=== PATIENT | male | born 1955 | race African-American/Black ===

== ENCOUNTER 2018-06-16 00:37 | Emergency (ER) | payer MEDICAID, OTHER ==
[~2018-06-16] VITALS: Ht 182.9 cm; Wt 96.0 kg
[2018-06-16] MEDS ORDERED: MECLIZINE 25MG TABLET PO ONE (02:15)
[2018-06-16 02:51] VITALS: BP 126/82
== END 2018-06-16 03:19 | disposition home or self-care (01) ==
LOC: ER 00:37
DX: R42 Dizziness and giddiness (principal); E11.9 Type 2 diabetes mellitus without complications; I10 Essential (primary) hypertension; D64.9 Anemia, unspecified; Z86.73 Personal history of transient ischemic attack (TIA), and cerebral infarction without residual deficits; Z98.890 Other specified postprocedural states
CPT/HCPCS: 99282; Z7610; J8597

== ENCOUNTER 2018-11-09 11:21 | Inpatient (IN) | payer MEDICAID ==
[~2018-11-09] VITALS: Ht 172.7 cm; Wt 88.7 kg
[2018-11-09] MEDS ORDERED: FAMOTIDINE 20MG/2ML VIAL IV STA (14:19)
[2018-11-09] MEDS ORDERED: MORPHINE SULFATE 4 MG/ML CPJ (NOT FOR IM USE) IV STA (14:19)
[2018-11-09] MEDS ORDERED: SODIUM CHLORIDE 0.9% 1,000 ML IV ONE (14:19)
[2018-11-09] MEDS ORDERED: ONDANSETRON HCL 4MG/2ML INJ IV STA (14:19)
[2018-11-09] MEDS ORDERED: MORPHINE SULFATE 2 MG/ML CPJ (NOT FOR IM USE) IV NR (15:15)
[2018-11-09 16:29] LABS: BASOPHILS % 0.1 % (0.0-2.0); HEMATOCRIT. 34.1 % (42.0-52.0); HEMOGLOBIN. 11.2 g/dL (14.0-18.0); LYMPHOCYTES % 7.1 % (20.0-50.0); MEAN CORPUSCULAR HEMOGLOBIN 30.5 pg (28.0-32.0); MEAN CORPUSCULAR VOLUME 92.8 fL (80.0-94.0); MONOCYTES % 3.7 % (2.0-8.0); NEUTROPHILS % 89.1 % (40.0-76.0); PLATELET 290 x1000/uL (130-400); RED BLOOD CELL COUNT 3.68 mill/uL (4.7-6.1); RED CELL DISTRIBUTION WIDTH 13.2 % (11.6-14.6)
[2018-11-09 16:34] LABS: CHLORIDE 96 mEq/L (98-107)
[2018-11-09 16:38] LABS: INR 1.1; PROTHROMBIN TIME 10.8 sec (9.1-11.1)
[2018-11-09] MEDS ORDERED: SODIUM CHLORIDE 0.9% 1000ML BAG (SEPSIS BOLUS) IV ONE (18:00)
[2018-11-09 18:12] LABS: CLARITY URINE CLEAR (CLEAR); COLOR URINE YELLOW (YELLOW); KETONES URINE 1+ (NEGATIVE); LEUKOCYTE ESTERASE URINE NEGATIVE (NEGATIVE); NITRITE URINE NEGATIVE (NEGATIVE); OCCULT BLOOD URINE 2+ (NEGATIVE); PH URINE 6.5 (4.5-8.0); PROTEIN URINE 4+ (NEGATIVE)
[2018-11-09] MEDS ORDERED: HYDRALAZINE 20MG/ML VIAL IV ONE (18:30)
[2018-11-09 18:33] LABS: METHADONE URINE SCREEN NEGATIVE (NEGATIVE); OPIATES URINE SCREEN PRESUMTIVE POSITIVE (NEGATIVE)
[2018-11-09 18:34] LABS: *AMPHETAMINES SCREEN URINE NEGATIVE (NEGATIVE); *BARBITURATES SCREEN URINE NEGATIVE (NEGATIVE); *BENZODIAZEPINES SCREEN URINE NEGATIVE (NEGATIVE); *COCAINE SCREEN URINE PRESUMTIVE POSITIVE (NEGATIVE); CANNABINOID URINE SCREEN PRESUMTIVE POSITIVE (NEGATIVE); PHENCYCLIDINE URINE SCREEN NEGATIVE (NEGATIVE)
[2018-11-09] MEDS ORDERED: HYDRALAZINE 20MG/ML VIAL IV PRN (20:15)
[2018-11-09] MEDS ORDERED: ONDANSETRON HCL 4MG/2ML INJ IV PRN (20:15)
[2018-11-09] MEDS ORDERED: MORPHINE SULFATE 2 MG/ML CPJ (NOT FOR IM USE) IV PRN (20:15)
[2018-11-09] MEDS ORDERED: ACETAMINOPHEN 325MG TABLET PO PRN (20:15)
[2018-11-09] MEDS ORDERED: CLONIDINE 0.1MG TABLET PO PRN (20:15)
[2018-11-09] MEDS: ONDANSETRON HCL 4MG/2ML INJ IV PRN (20:25)
[2018-11-09] MEDS: HYDROMORPHONE HCL/PF 2MG/ML CPJ IV PRN (21:31)
[2018-11-09 22:30] VITALS: BP 141/71
[2018-11-09] MEDS: AMLODIPINE 5MG TABLET PO SCH (22:36)
[2018-11-09] MEDS ORDERED: DEXT 5%/0.45% NACL 1000ML 1,000 ML IV SCH (22:37)
[2018-11-09] MEDS: METOPROLOL TARTRATE 50MG TABLET PO SCH (22:37)
[2018-11-09] MEDS ORDERED: MORPHINE SULFATE 4 MG/ML CPJ (NOT FOR IM USE) IV PRN (22:38)
[2018-11-10] VITALS: BP 135/74
[2018-11-10] MEDS ORDERED: DEXTROSE 50% WATER 50ML SYRINGE IV PRN (00:45)
[2018-11-10] MEDS ORDERED: LEVOFLOXACIN 500MG PREMIX 100 ML IV SCH ×3 (02:00)
[2018-11-10] MEDS: HYDROMORPHONE HCL/PF 2MG/ML CPJ IV PRN ×5 (02:31→20:03)
[2018-11-10 04:00] VITALS: BP 111/62
[2018-11-10 06:51] VITALS: BP 169/91
[2018-11-10 07:07] LABS: BASOPHILS % 0.3 % (0.0-2.0); EOSINOPHILS % 0.3 % (0.0-5.0); HEMATOCRIT. 29.1 % (42.0-52.0); HEMOGLOBIN. 9.8 g/dL (14.0-18.0); LYMPHOCYTES % 17.1 % (20.0-50.0); MEAN CORPUSCULAR VOLUME 91.9 fL (80.0-94.0); MEAN PLATELET VOLUME 9.3 fl (7.4-10.4); MONOCYTES % 9.5 % (2.0-8.0); NEUTROPHILS % 72.8 % (40.0-76.0); PLATELET 233 x1000/uL (130-400); RED BLOOD CELL COUNT 3.16 mill/uL (4.7-6.1); RED CELL DISTRIBUTION WIDTH 13.2 % (11.6-14.6)
[2018-11-10] MEDS: BLOOD SUGAR DIAGNOSTIC STRIP TEST SCH ×4 (07:55→20:11)
[2018-11-10 08:00] VITALS: BP 144/75
[2018-11-10] MEDS: INSULIN LISPRO 100 UNITS/ML SUBCUT SCH ×4 (09:11→21:00)
[2018-11-10] MEDS: PANTOPRAZOLE SODIUM 40 MG/VIAL IV SCH (09:11)
[2018-11-10] MEDS: AMLODIPINE 5MG TABLET PO SCH ×2 (09:11→20:08)
[2018-11-10] MEDS: METOPROLOL TARTRATE 50MG TABLET PO SCH (09:11)
[2018-11-10] MEDS ORDERED: SODIUM CHLORIDE 0.9% 1,000 ML IV SCH (10:00)
[2018-11-10] MEDS ORDERED: HYDRALAZINE 10 MG in SODIUM CHLORIDE 0.9% 49.5 ML IV PRN (10:15)
[2018-11-10 12:56] LABS: FOLIC ACID (FOLATE) SERUM 10.1 ng/mL (>5.38)
[2018-11-10 13:28] LABS: HEMATOCRIT 31.6 % (42.0-52.0); HEMOGLOBIN 10.4 g/dL (14.0-18.0)
[2018-11-10 16:00] VITALS: BP 100/58
[2018-11-10 19:42] LABS: HEMATOCRIT 29.8 % (42.0-52.0); HEMOGLOBIN 9.8 g/dL (14.0-18.0)
[2018-11-10 20:00] VITALS: BP 154/92
[2018-11-10] MEDS: HYDRALAZINE HCL 25MG TABLET PO SCH (20:08)
[2018-11-10 20:22] LABS: HEPATITIS B SURFACE ANTIGEN NEGATIVE
[2018-11-10 20:52] LABS: HEPATITIS A AB IGM NEGATIVE (NEGATIVE)
[2018-11-10] MEDS ORDERED: LEVOFLOXACIN 250MG PREMIX 50 ML IV SCH (21:00)
[2018-11-11] VITALS: BP 136/80
[2018-11-11 01:13] LABS: HEMATOCRIT 29.6 % (42.0-52.0); HEMOGLOBIN 9.7 g/dL (14.0-18.0)
[2018-11-11] MEDS: HYDROMORPHONE HCL/PF 2MG/ML CPJ IV PRN ×4 (01:33→17:27)
[2018-11-11 04:00] VITALS: BP 141/87
[2018-11-11 06:53] LABS: BASOPHILS % 0.3 % (0.0-2.0); EOSINOPHILS % 0.3 % (0.0-5.0); HEMATOCRIT. 28.6 % (42.0-52.0); HEMOGLOBIN. 9.6 g/dL (14.0-18.0); LYMPHOCYTES % 22.1 % (20.0-50.0); MEAN CORPUSCULAR HEMOGLOBIN 31.1 pg (28.0-32.0); MEAN CORPUSCULAR VOLUME 92.1 fL (80.0-94.0); MEAN PLATELET VOLUME 8.8 fl (7.4-10.4); MONOCYTES % 8.1 % (2.0-8.0); NEUTROPHILS % 69.2 % (40.0-76.0); PLATELET 236 x1000/uL (130-400); RED BLOOD CELL COUNT 3.11 mill/uL (4.7-6.1); RED CELL DISTRIBUTION WIDTH 13.4 % (11.6-14.6)
[2018-11-11] MEDS: HYDRALAZINE HCL 25MG TABLET PO SCH (07:17)
[2018-11-11] MEDS: BLOOD SUGAR DIAGNOSTIC STRIP TEST SCH ×3 (07:19→17:20)
[2018-11-11] MEDS: INSULIN LISPRO 100 UNITS/ML SUBCUT SCH ×2 (07:50→12:50)
[2018-11-11 07:52] LABS: CHLORIDE 105 mEq/L (98-107)
[2018-11-11 07:57] LABS: AMYLASE 104 IU/L (25-115)
[2018-11-11 07:59] LABS: PHOSPHORUS 3.6 mg/dL (2.5-4.9)
[2018-11-11 08:49] VITALS: BP 124/76
[2018-11-11] MEDS: AMLODIPINE 5MG TABLET PO SCH (08:52)
[2018-11-11] MEDS: ONDANSETRON HCL 4MG/2ML INJ IV PRN (08:53)
[2018-11-11] MEDS: PANTOPRAZOLE SODIUM 40 MG/VIAL IV SCH (08:53)
[2018-11-11] MEDS ORDERED: CLONIDINE HCL 0.1MG/24HR PATCH TD SCH (11:00)
[2018-11-11] MEDS ORDERED: BISACODYL 5MG TABLET PO PRN (11:15)
[2018-11-11] MEDS: DOCUSATE SODIUM 250MG CAPSULE PO SCH ×2 (13:19→17:00)
[2018-11-11 16:12] VITALS: BP 145/68
[2018-11-11 18:39] VITALS: BP 148/68
[2018-11-12 09:06] LABS: A/G RATIO 1.1 (0.7-1.7); ALBUMIN 2.8 g/dL (2.9-4.4); ALPHA-1-GLOBULIN 0.2 g/dL (0.0-0.4); ALPHA-2-GLOBULIN 0.6 g/dL (0.4-1.0); BETA GLOBULIN 0.9 g/dL (0.7-1.3); GAMMA GLOBULINS 0.9 g/dL (0.4-1.8); GLOBULIN TOTAL 2.6 g/dL (2.2-3.9); M-SPIKE Not Observed g/dL (Not Observed); TOTAL PROTEIN SERUM 5.4 g/dL (6.0-8.5)
[2018-11-13 04:15] LABS: COMPLEMENT C3 93 mg/dL (82-167)
== END 2018-11-11 20:40 | disposition home or self-care (01) | DRG 469 ==
LOC: ER 11:21 → 6EST 17:27 → ENRESERV 21:30
PROVIDERS: ADMIT Internal Medicine; ATTEND Internal Medicine
DX: N17.9 Acute kidney failure, unspecified (principal); E11.22 Type 2 diabetes mellitus with diabetic chronic kidney disease; E44.0 Moderate protein-calorie malnutrition; E87.1 Hypo-osmolality and hyponatremia; K76.89 Other specified diseases of liver; N18.9 Chronic kidney disease, unspecified; D64.9 Anemia, unspecified; N20.0 Calculus of kidney; K80.20 Calculus of gallbladder without cholecystitis without obstruction; N28.1 Cyst of kidney, acquired; K42.9 Umbilical hernia without obstruction or gangrene; D72.829 Elevated white blood cell count, unspecified; R10.9 Unspecified abdominal pain; I12.9 Hypertensive chronic kidney disease with stage 1 through stage 4 chronic kidney disease, or unspecified chronic kidney disease; F14.129 Cocaine abuse with intoxication, unspecified; G89.29 Other chronic pain; Z86.73 Personal history of transient ischemic attack (TIA), and cerebral infarction without residual deficits; Z82.49 Family history of ischemic heart disease and other diseases of the circulatory system; Z83.3 Family history of diabetes mellitus; Z68.29 Body mass index [BMI] 29.0-29.9, adult
CPT/HCPCS: 36415; 71045; 74176; 76700; 78227; 80048; 80076; 80305; 82150; 82248; 82607; 82728; 82746; 82962; 83540; 83550; 83605; 83735; 84100; 84145; 84155; 84165; 84443; 84484; 85014; 85018; 86160; 86705; 86709; 86803; 87340; 93005; 96374; 96375; 96376; 99285; A9537; C9113; J0360; J1170; J1815; J1956; J2270; J2405; J3490; J7030

== ENCOUNTER 2018-11-13 09:16 | Emergency (ER) | payer MEDICAID ==
[~2018-11-13] VITALS: Ht 180.3 cm; Wt 95.0 kg
[2018-11-13] MEDS ORDERED: PANTOPRAZOLE SODIUM 40 MG/VIAL IV STA (10:14)
[2018-11-13] MEDS ORDERED: SODIUM CHLORIDE 0.9% 1,000 ML IV ONE (10:14)
[2018-11-13] MEDS ORDERED: KETOROLAC 30MG/ML VIAL IV STA (10:14)
[2018-11-13] MEDS ORDERED: ONDANSETRON HCL 4MG/2ML INJ IV STA (10:14)
[2018-11-13] MEDS ORDERED: FAMOTIDINE 20MG/2ML VIAL IV STA (10:14)
[2018-11-13 11:49] LABS: BASOPHILS % 0.5 % (0.0-2.0); EOSINOPHILS % 0.3 % (0.0-5.0); HEMATOCRIT. 31.9 % (42.0-52.0); HEMOGLOBIN. 10.9 g/dL (14.0-18.0); MEAN CORPUSCULAR HEMOGLOBIN 30.9 pg (28.0-32.0); MEAN CORPUSCULAR VOLUME 90.3 fL (80.0-94.0); MEAN PLATELET VOLUME 8.7 fl (7.4-10.4); MONOCYTES % 8.5 % (2.0-8.0); NEUTROPHILS % 74.7 % (40.0-76.0); PLATELET 270 x1000/uL (130-400); RED BLOOD CELL COUNT 3.53 mill/uL (4.7-6.1)
[2018-11-13 11:52] LABS: CHLORIDE 100 mEq/L (98-107); INR 1.1
[2018-11-13 11:58] LABS: ETHANOL BLOOD < 10 mg/dL
[2018-11-13 12:45] VITALS: BP 194/76
[2018-11-13 12:58] LABS: CLARITY URINE CLEAR (CLEAR); COLOR URINE YELLOW (YELLOW); KETONES URINE 2+ (NEGATIVE); LEUKOCYTE ESTERASE URINE NEGATIVE (NEGATIVE); NITRITE URINE NEGATIVE (NEGATIVE); OCCULT BLOOD URINE 2+ (NEGATIVE); PH URINE 5.5 (4.5-8.0); PROTEIN URINE 3+ (NEGATIVE); SPECIFIC GRAVITY URINE 1.014 (1.005-1.030); UROBILINOGEN URINE 0.2 E.U./dL (0.2-1.0)
[2018-11-13 13:41] LABS: *AMPHETAMINES SCREEN URINE NEGATIVE (NEGATIVE); *BARBITURATES SCREEN URINE NEGATIVE (NEGATIVE); *BENZODIAZEPINES SCREEN URINE NEGATIVE (NEGATIVE); *COCAINE SCREEN URINE PRESUMTIVE POSITIVE (NEGATIVE); METHADONE URINE SCREEN NEGATIVE (NEGATIVE); OPIATES URINE SCREEN PRESUMTIVE POSITIVE (NEGATIVE)
[2018-11-13 13:42] LABS: CANNABINOID URINE SCREEN NEGATIVE (NEGATIVE); PHENCYCLIDINE URINE SCREEN NEGATIVE (NEGATIVE)
== END 2018-11-13 14:38 | disposition home or self-care (01) ==
LOC: ER 09:16
DX: R10.13 Epigastric pain (principal); R11.2 Nausea with vomiting, unspecified; F19.10 Other psychoactive substance abuse, uncomplicated; F12.10 Cannabis abuse, uncomplicated; D64.9 Anemia, unspecified; E11.9 Type 2 diabetes mellitus without complications; I10 Essential (primary) hypertension; Z86.73 Personal history of transient ischemic attack (TIA), and cerebral infarction without residual deficits
CPT/HCPCS: 36415; 74022; 80053; 80305; 81003; 83690; 84484; 85025; 85610; 93005; 96361; 96374; 96375; 99284; C9113; G0482; J1885; J2405; J3490; J7030